=== PATIENT | female | born 1965 | race Caucasian/White ===

== ENCOUNTER 2017-02-04 20:35 | Emergency (ER) | payer OTHER | END 2017-02-04 23:25 | disposition home or self-care (01) | LOC: ER 20:35 | DX: G44.209 Tension-type headache, unspecified, not intractable (principal); F32.9 Major depressive disorder, single episode, unspecified; F41.9 Anxiety disorder, unspecified; Z88.5 Allergy status to narcotic agent; Z79.899 Other long term (current) drug therapy | CPT/HCPCS: 96361; 96374; 96375; 99283-25; J2765; J7040 ==